=== PATIENT | female | born 1955 | race African-American/Black ===

== ENCOUNTER 2019-03-31 09:42 | Emergency (ER) | payer MEDICAID ==
[~2019-03-31] VITALS: Ht 167.6 cm; Wt 112.0 kg
[2019-03-31 09:51] VITALS: BP 160/98
== END 2019-03-31 14:37 | disposition home or self-care (01) ==
LOC: ER 09:42
DX: M25.562 Pain in left knee (principal); M25.561 Pain in right knee; M25.512 Pain in left shoulder; M17.0 Bilateral primary osteoarthritis of knee; Y08.89XA Assault by other specified means, initial encounter; Y93.89 Activity, other specified; Y92.89 Other specified places as the place of occurrence of the external cause
CPT/HCPCS: 73030; 73560; 99283

== ENCOUNTER 2019-05-23 12:59 | Emergency (ER) | payer MEDICAID ==
[~2019-05-23] VITALS: Ht 167.6 cm; Wt 91.0 kg
[2019-05-23 13:06] VITALS: BP 110/70
== END 2019-05-23 16:15 | disposition left against medical advice (07) ==
LOC: ER 13:28
DX: Z53.21 Procedure and treatment not carried out due to patient leaving prior to being seen by health care provider (principal)

== ENCOUNTER 2019-08-19 02:44 | Emergency (ER) | payer MEDICAID ==
[~2019-08-19] VITALS: Ht 162.6 cm; Wt 91.0 kg
[2019-08-19 05:26] VITALS: BP 139/55
[2019-08-19] MEDS ORDERED: ACETAMINOPHEN 325MG TABLET PO ONE (07:15)
== END 2019-08-19 09:38 | disposition left against medical advice (07) ==
LOC: ER 02:44
DX: M79.604 Pain in right leg (principal); M79.605 Pain in left leg
CPT/HCPCS: 93970; 99284; Z7610

== ENCOUNTER 2019-11-25 00:54 | Emergency (ER) | payer MEDICAID ==
[~2019-11-25] VITALS: Ht 167.6 cm; Wt 85.0 kg
[2019-11-25] MEDS ORDERED: KETOROLAC 30MG/ML VIAL IM ONE (02:00)
[2019-11-25 02:54] VITALS: BP 132/85
[2019-11-25] MEDS ORDERED: ACETAMINOPHEN 325MG TABLET PO ONE (07:15)
== END 2019-11-25 08:15 | disposition left against medical advice (07) ==
LOC: ER 00:54
DX: R05 Cough (principal); M25.561 Pain in right knee; M25.562 Pain in left knee; Z59.0 Homelessness; I10 Essential (primary) hypertension; Z98.890 Other specified postprocedural states
CPT/HCPCS: 96372; 99283; J1885

== ENCOUNTER 2021-03-28 11:20 | Emergency (ER) | payer MEDICAID ==
[~2021-03-28] VITALS: Ht 167.6 cm; Wt 82.0 kg
[~2021-03-28 11:20] MED LIST: CLIN150C2; SEE MED SHEET
[2021-03-28 11:31] VITALS: BP 156/101
[2021-03-28 13:14] LABS: BASOPHILS % 0.6 % (0.0-2.0); EOSINOPHILS % 2.7 % (0.0-5.0); HEMATOCRIT. 37.6 % (36.0-48.0); HEMOGLOBIN. 12.1 g/dL (12.0-16.0); LYMPHOCYTES % 43.6 % (20.0-50.0); MEAN CORPUSCULAR HEMOGLOBIN 28.6 pg (28.0-32.0); MEAN CORPUSCULAR VOLUME 88.9 fL (81.0-99.0); MEAN PLATELET VOLUME 9.2 fl (7.4-10.4); MONOCYTES % 14.1 % (2.0-8.0); PLATELET 175 x1000/uL (130-400); RED BLOOD CELL COUNT 4.23 mill/uL (4.2-5.4); RED CELL DISTRIBUTION WIDTH 15.1 % (11.6-14.6)
[2021-03-28 13:19] LABS: CHLORIDE 111 mEq/L (98-107)
[2021-03-28] MEDS ORDERED: ASPIRIN 81MG TABLET PO ONE (14:15)
[2021-03-28] MEDS ORDERED: FUROSEMIDE 40MG TABLET PO ONE (14:15)
[2021-03-28] MEDS ORDERED: POTA5TAB2 MT (14:42)
[2021-03-28] MEDS ORDERED: FURO-152 MT (14:42)
== END 2021-03-28 15:31 | disposition home or self-care (01) ==
LOC: ER 11:20
DX: I50.9 Heart failure, unspecified (principal); I51.7 Cardiomegaly
CPT/HCPCS: 36415; 71045; 80053; 83880; 84484; 85025; 93005; 99285; Z7610

== ENCOUNTER 2021-06-04 01:28 | Emergency (ER) | payer MEDICAID ==
[~2021-06-04] VITALS: Ht 167.6 cm; Wt 81.0 kg
[~2021-06-04 01:28] MED LIST changes: +FURO-152 MT; +POTA5TAB2 MT
[2021-06-04 03:09] LABS: HEMATOCRIT. 28.7 % (36.0-48.0); HEMOGLOBIN. 9.4 g/dL (12.0-16.0); MEAN CORPUSCULAR HEMOGLOBIN 27.9 pg (28.0-32.0); MEAN CORPUSCULAR VOLUME 85.4 fL (81.0-99.0); MEAN PLATELET VOLUME 8.7 fl (7.4-10.4); PLATELET 165 x1000/uL (130-400); RED BLOOD CELL COUNT 3.36 mill/uL (4.2-5.4); RED CELL DISTRIBUTION WIDTH 16.8 % (11.6-14.6)
[2021-06-04 03:10] LABS: CHLORIDE 113 mEq/L (98-107)
[2021-06-04] MEDS ORDERED: FURO-151 MT (04:38)
[2021-06-04] MEDS ORDERED: POTA8CAP20 MT (04:38)
[2021-06-04 05:07] VITALS: BP 128/71
[2021-06-04 07:25] LABS: PLATELET ESTIMATE NORMAL
== END 2021-06-04 05:08 | disposition home or self-care (01) ==
LOC: ER 01:28
DX: I50.9 Heart failure, unspecified (principal)
CPT/HCPCS: 36415; 71045; 80053; 84484; 85025; 99284